=== PATIENT | female | born 1960 | race Two or more races ===

== ENCOUNTER 2017-11-08 17:42 | Emergency (ER) | payer MEDICAID, OTHER ==
[~2017-11-08] VITALS: Ht 149.9 cm; Wt 68.0 kg
[2017-11-08 17:53] VITALS: BP 126/82
== END 2017-11-08 18:49 | disposition home or self-care (01) ==
LOC: ER 17:45
DX: S20.211A Contusion of right front wall of thorax, initial encounter (principal); E03.9 Hypothyroidism, unspecified; V43.52XA Car driver injured in collision with other type car in traffic accident, initial encounter; Y93.89 Activity, other specified; Y92.89 Other specified places as the place of occurrence of the external cause; Y99.8 Other external cause status
CPT/HCPCS: A4606; Z7610